=== PATIENT | male | born 1945 | race Caucasian/White ===

== ENCOUNTER 2020-08-21 17:37 | Emergency (ER) | payer MEDICARE, OTHER ==
[~2020-08-21] VITALS: Ht 182.9 cm; Wt 105.1 kg
[~2020-08-21 17:37] MED LIST: ASPI-496 PO; CHOL400C PO; DOXA8TAB2 PO; M-171CAP PO; MULT-26 PO; SIMV40TA20 PO; TRIA15OI TP
--- NOTE | 2020-08-21 18:26 | NUR ---
CALLED FROM [facility] @ 9520 N/A
--- NOTE | 2020-08-21 19:00 | NUR ---
[facility] C/O LLQ RADIATING TO LEFT FLANK, INTERMITTENT, SINCE 1300 TODAY. PT DENIES ANY URINARY SYMPTOMS OR N/V/D. CHART UP FOR MD . WAITING FOR ORDERS.
--- NOTE | 2020-08-21 19:55 | NUR ---
UA COLLECTED AND SENT TO THE LAB.
--- NOTE | 2020-08-21 20:00 | NUR ---
STILL WAITING ON PROVIDER RO SEE PT.
[2020-08-21 20:10] LABS: MICROSCOPIC AUTO
--- NOTE | 2020-08-21 20:30 | NUR ---
PT IN CT
[2020-08-21 20:41] LABS: BASOPHILS # (AUTO) 0.06 x10^3/uL (0-0.1); BASOPHILS % (AUTO) 1 % (0-1); EOSINOPHILS # (AUTO) 0.23 x10^3/uL (0-0.4); EOSINOPHILS % (AUTO) 2 % (1-7); LYMPHOCYTES # (AUTO) 1.28 x10^3/uL (1-3.4); LYMPHOCYTES % (AUTO) 11 % (22-44); MD NO; MEAN CORPUSCULAR HEMOGLOBIN 30.4 pg (27.5-34.5); MEAN CORPUSCULAR HGB CONC 33.4 g/dL (33.2-36.2); MEAN PLATELET VOLUME 8.4 fL (7.4-10.4); MONOCYTES # (AUTO) 1.05 x10^3/uL (0.2-0.8); MONOCYTES % (AUTO) 9 % (2-9); NEUTROPHILS # (AUTO) 8.78 x10^3/uL (1.8-6.8); NEUTROPHILS % (AUTO) 77 % (42-75); PLATELET COUNT 229 x10^3/uL (130-400); RED BLOOD COUNT 4.83 x10^6/uL (4.38-5.82); RED CELL DISTRIBUTION WIDTH 13.9 % (9.4-14.8)
[2020-08-21 20:51] LABS: ALANINE AMINOTRANSFERASE 42 U/L (12-78); ALBUMIN 3.8 g/dL (3.4-5.0); ANION GAP 6 mmol/L (5-15); CALCIUM 8.8 mg/dL (8.5-10.1); CHLORIDE 111 mmol/L (98-107)
[2020-08-21 20:53] LABS: ALKALINE PHOSPHATASE 58 U/L (45-117); BILIRUBIN,TOTAL 0.3 mg/dL (0.2-1.0); TOTAL PROTEIN 6.9 g/dL (6.4-8.2)
[2020-08-21 21:52] VITALS: BP 161/88
== END 2020-08-21 21:58 | disposition home or self-care (01) ==
LOC: ED 21:14
DX: R10.32 Left lower quadrant pain (principal); I10 Essential (primary) hypertension
CPT/HCPCS: 36415; 74176; 80053; 81001; 85025; 99284

== ENCOUNTER 2021-02-24 17:59 | Emergency (ER) | payer MEDICARE, OTHER ==
[~2021-02-24] VITALS: Ht 182.9 cm; Wt 106.0 kg
--- NOTE | 2021-02-24 18:25 | NUR ---
PT HAS CO BLOOD IN URINE. STARTED YESTERDAY. DRANK FLUIDS AND WAS CLEAR URINE UNTIL TODAY THIS AFTERNOON. BLOOD IN URINE W SMALL CLOTS. DENIES PAINFUL URINATION OR DYSURIA. NO ABDOMINAL OR FLANK PAIN. HX OF TURP.
--- NOTE | 2021-02-24 18:37 | NUR ---
TO ORDER TO INSERT NAVARRETE AND IRRIGATE. ORDERED NAVARRETE FROM [facility].
[2021-02-24 18:40] LABS: BASOPHILS % (AUTO) 1 % (0-1); EOSINOPHILS % (AUTO) 5 % (1-7); LYMPHOCYTES % (AUTO) 19 % (22-44); MEAN CORPUSCULAR HEMOGLOBIN 30.5 pg (27.5-34.5); MEAN CORPUSCULAR HGB CONC 34.5 g/dL (33.2-36.2); MEAN PLATELET VOLUME 8.2 fL (7.4-10.4); MONOCYTES % (AUTO) 9 % (2-9); NEUTROPHILS % (AUTO) 66 % (42-75); PLATELET COUNT 229 x10^3/uL (130-400); RED BLOOD COUNT 4.85 x10^6/uL (4.38-5.82)
[2021-02-24 18:41] LABS: MD NO
--- NOTE | 2021-02-24 18:46 | NUR ---
REPORT FROM [facility] INST[facility]ER OF CARE AT THIS TIME.
[2021-02-24 18:49] VITALS: BP 143/78
[2021-02-24 18:52] LABS: ALANINE AMINOTRANSFERASE 42 U/L (12-78); ANION GAP 7 mmol/L (5-15); CALCIUM 8.9 mg/dL (8.5-10.1); CHLORIDE 104 mmol/L (98-107); CREATININE 0.93 mg/dL (0.7-1.3)
[2021-02-24 18:54] LABS: ALKALINE PHOSPHATASE 63 U/L (45-117); BILIRUBIN,TOTAL 0.3 mg/dL (0.2-1.0); TOTAL PROTEIN 6.9 g/dL (6.4-8.2)
--- NOTE | 2021-02-24 19:04 | NUR ---
PT RESTING ON GURNEY NADN NO NEEDS AT THIS TIME. REMAINS AT BEDSIDE
[2021-02-24 19:07] LABS: MICROSCOPIC AUTO
[2021-02-24] MEDS ORDERED: LIDOCAINE 2%,20 ML JEL.PF.APP MM ONE ×2 (19:30→19:33)
--- NOTE | 2021-02-24 20:09 | NUR ---
NAVARRETE INSERTED PER DR YOUNG AT THIS TIME. PT TOLERATED WELL, NAVARRETE DRAINING WITHOUT DIFFICULTY.
--- NOTE | 2021-02-24 20:56 | NUR ---
ERP AT BEDSIDE FOR EVAL, NAVARRETE DC PER DR YOUNG. PT TO BE DC HOME
--- NOTE | 2021-02-24 21:04 | NUR ---
Patient/Caregiver given discharge instructions and they have confirmed that they understand the instructions. Patient ambulatory with steady gait.
== END 2021-02-24 21:05 | disposition home or self-care (01) ==
LOC: ED 19:53
DX: R31.0 Gross hematuria (principal)
CPT/HCPCS: 36415; 80053; 81001; 85025; 87086; 99284